=== PATIENT | female | born 1970 | race American Indian/Alaskan Native ===

== ENCOUNTER 2021-04-30 07:58 | Day surgery (SDC) | payer MEDICAID ==
[2021-04-24 16:09] LABS: BASOPHILS # (AUTO) 0.1 X10'3 (0-0.2); BASOPHILS % (AUTO) 0.6 % (0-1); EOSINOPHILS # (AUTO) 0.3 X10'3 (0-0.9); EOSINOPHILS % (AUTO) 3.1 % (0-6); LYMPHOCYTES # (AUTO) 3.5 X10'3 (1.1-4.8); LYMPHOCYTES % (AUTO) 41.4 % (21-51); MEAN CORPUSCULAR HEMOGLOBIN 27.2 PG (27.0-31.0); MEAN CORPUSCULAR HGB CONC 33.6 g/dL (33.0-36.5); MEAN PLATELET VOLUME 8.5 FL (7.4-10.4); MONOCYTES # (AUTO) 0.4 X10'3 (0-0.9); MONOCYTES % (AUTO) 4.5 % (2-12); NEUTROPHILS # (AUTO) 4.3 X10'3 (1.8-7.7); NEUTROPHILS % (AUTO) 50.4 % (42-75); PRE OP HEMATOCRIT 43.3 % (35.0-45.0); PRE OP HEMOGLOBIN 14.5 g/dL (12.0-16.0); PRE OP PLATELET COUNT 385 X10'3 (140-440); PRE OP PROTIME 10.3 SECONDS (9.0-12.0); RED BLOOD COUNT 5.34 X10'6 (4.20-5.60); RED CELL DISTRIBUTION WIDTH 15.2 % (11.5-14.5)
[2021-04-24 16:12] LABS: ALBUMIN 3.6 G/DL (3.4-5.0); ALBUMIN/GLOBULIN RATIO 0.9 (1.1-1.5); ALKALINE PHOSPHATASE 116 IU/L (46-116); BLOOD UREA NITROGEN 7 MG/DL (7-18); BUN/CREATININE RATIO 9.5 (6.6-38.0); CALCIUM 9.2 MG/DL (8.5-10.1); CHLORIDE 105 MMOL/L (99-107); CREATININE 0.74 MG/DL (0.40-0.90); PRE OP ALT 27 U/L (30-65); PRE OP ANION GAP 9 (8-16); PRE OP AST 15 U/L (10-37); PRE OP BILIRUB, TOTAL 0.3 MG/DL (0.0-1.0); PRE OP GLUCOSE 97 MG/DL (70-104); PRE OP POTASSIUM 3.9 MMOL/L (3.4-5.1); PRE OP SODIUM 142 MMOL/L (135-145); TOTAL CARBON DIOXIDE 27.7 MMOL/L (24-32); TOTAL PROTEIN 7.7 G/DL (6.4-8.2); eGFR 83 ML/MIN
[~2021-04-30] VITALS: Ht 152.4 cm; Wt 78.6 kg
[2021-04-30] VITALS (13 sets, daily range): BP systolic 117–153; BP diastolic 78–92
[~2021-04-30 07:58] MED LIST: CHOL100017 PO; ENAL-75 PO; FAMO-49 PO
[2021-04-30] MEDS ORDERED: INDOCYANINE GREEN 25 MG/10 ML VIAL IV ONE (08:41)
[2021-04-30] MEDS ORDERED: famotidine 20mg tablet PO ONE (09:01)
[2021-04-30] MEDS ORDERED: ceFOXitin 2GM-NS 100mL ADDvant 100 ML IV ONE (09:01)
[2021-04-30] MEDS ORDERED: ringers solution, lacted 1,000 ML IV SCH ×2 (09:01→10:55)
[2021-04-30] MEDS ORDERED: ceFOXitin 2GM-NS 50mL ADDVANT. 50 ML IV ONE (09:05)
[2021-04-30] MEDS ORDERED: DEXTROSE 5% IV ONE (09:10)
[2021-04-30] MEDS ORDERED: CEFOXITIN SOD IV ONE (09:10)
[2021-04-30] MEDS ORDERED: WATER IV ONE (09:10)
[2021-04-30] MEDS ORDERED: BUPIVAcaine/PF 2.5 mg/ml (0.25%) 30ml vial ONE (10:48)
[2021-04-30] MEDS ORDERED: hydrALAZINE 20mg/ml inj. IV PRN (10:55)
[2021-04-30] MEDS ORDERED: morphine 4 MG/ML inj SYRINge IV PRN (10:55)
[2021-04-30] MEDS ORDERED: labetalol 20mg/4ml (5mg/ml) syringe IV PRN (10:55)
[2021-04-30] MEDS ORDERED: acetaminophen 1,000mg/100ml IV 100 ML IV PRN (10:55)
[2021-04-30] MEDS ORDERED: meperidine/PF 25mg/ml syringe IV PRN ×3 (10:55)
[2021-04-30] MEDS ORDERED: ondansetron/PF 4mg/2ml inj IV PRN (10:55)
[2021-04-30] MEDS ORDERED: morphine 2 MG/ML inj. syringe IV PRN (10:55)
[2021-04-30] MEDS ORDERED: proCHLORperazine 10 MG/2 ml inj IV PRN (10:55)
[2021-04-30] MEDS ORDERED: midazolam 1 mg/ML 2ml injection ONE (11:05)
[2021-04-30] MEDS ORDERED: fentaNYL /PF 50mcg/ml 5ml ampule ONE (11:06)
[2021-04-30] MEDS ORDERED: LIDOcaine 2% (20mg/ml) 5ml vial ONE (12:07)
[2021-04-30] MEDS ORDERED: rocuronium 10mg/ml inj IV ONE (12:07)
[2021-04-30] MEDS ORDERED: propofol inj 20 ML IV ONE (12:07)
[2021-04-30] MEDS ORDERED: ondansetron/PF 4mg/2ml inj ONE (12:08)
[2021-04-30] MEDS ORDERED: dexamethasone sod phosphate 4mg/ml inj. ONE (12:08)
[2021-04-30] MEDS ORDERED: neostigmine methylsulfate 1 MG/ML 10ml vial ONE (12:09)
[2021-04-30] MEDS ORDERED: glycopyrrolate 0.2mg/ml inj ONE (12:09)
[2021-04-30] MEDS ORDERED: sugammadex 200mg/2ml injection IV ONE (12:30)
[2021-04-30] MEDS ORDERED: albuterol 60 PUFF/8GM Inhaler IH ONE (12:35)
[2021-04-30] MEDS ORDERED: metoclopramide 5 mg/ml inj ONE (12:35)
--- NOTE | 2021-04-30 12:45 | NUR ---
Received from OR via [facility], accompanied by Anesthesiologist SON and report given by Anesthesiolgist. 5 ABD BANDAIDS CDI. NO RESP DISTRESS, VSS, IV CLEAR, SKIN WARM DRY. DENIES PAIN AT THIS TIME.
[2021-04-30] MEDS ORDERED: HYDROcodone/acetaminophen 5mg/325mg tablet PO STA (14:16)
--- NOTE | 2021-04-30 14:35 | NUR ---
PT AWAKE AND GETTING DRESSED, VSS, PAIN TOLERABLE-GIVEN 1 NORCO FOR TRIP HOME, ABLE TO AMBULATE TO BATHROOM WITHOUT DIFFICULTY, PIV D/CD-[facility]ULA INTACT, SCDS OFF, PAIN MEDS ALREDY ESCRIPTED TO [facility], D/C INSTRUCTIONS GIVEN TO PT-ALL QUESTIONS ANSWERED, GIVEN EMESIS BAG JUST IN CASE FOR RIDE HOME, ENCOURAGED TO SLEEP IN RECLINER FOR NEXT 24 HRS D/T HX OF SLEEP APNEA. TAKEN VIA W/C WITH BELONGINGS TO [facility]SP[facility] VEHICLE.
== END 2021-04-30 14:35 | disposition home or self-care (01) ==
LOC: PAS 07:58
PROVIDERS: ATTEND Surgery
DX: K80.00 Calculus of gallbladder with acute cholecystitis without obstruction (principal); I10 Essential (primary) hypertension; G47.33 Obstructive sleep apnea (adult) (pediatric); K21.9 Gastro-esophageal reflux disease without esophagitis; E66.9 Obesity, unspecified; Z68.34 Body mass index [BMI] 34.0-34.9, adult; Z79.01 Long term (current) use of anticoagulants; Z79.899 Other long term (current) drug therapy; Z20.822 Contact with and (suspected) exposure to COVID-19; Z98.890 Other specified postprocedural states; Z83.3 Family history of diabetes mellitus; Z82.49 Family history of ischemic heart disease and other diseases of the circulatory system
CPT/HCPCS: 36415; 47562; 71045; 80053; 82948; 85025; 85610; 85730; 93005; J0131; J1100; J2175; J2250; J2405; J2704; J2710; J2765; J3010; J3490; J7030; J7120; S2900; U0003; U0005; Z7506; Z7508; Z7512; A4215; A4618; A7000